=== PATIENT | male | born 1985 | race Caucasian/White ===

== ENCOUNTER 2018-10-19 20:44 | Emergency (ER) ==
[~2018-10-19] VITALS: Ht 177.8 cm; Wt 101.2 kg
--- NOTE | 2018-10-19 22:09 | NUR ---
C MAIN, PAC IS SPEAKING TO THE PT.
[2018-10-19 23:09] VITALS: BP 137/85
== END 2018-10-19 23:10 | disposition home or self-care (01) ==
LOC: ER 20:50
DX: R06.02 Shortness of breath (principal); F41.9 Anxiety disorder, unspecified
CPT/HCPCS: 71046